=== PATIENT | male | born 1965 | race Caucasian/White ===

== ENCOUNTER 2017-05-07 07:00 | Emergency (ER) | payer SELFPAY ==
[2017-05-07] MEDS ORDERED: Ketorolac Tromethamine 30 MG/ML VIAL ONE (07:29)
--- NOTE | 2017-05-07 09:09 | RAD ---
RADIOGRAPH RIGHT SHOULDER 3 VIEWS: DTAE: 05/07/17. HISTORY: A 52-year-old male, acute right shoulder traumatic pain. COMPARISON: None. FINDINGS: Moderate degenerative changes at AC joint. Mild to moderate degenerative changes at inferior aspect of the glenohumeral joint. No acute fracture, subluxation, or dislocation. Low-grade chondroid lesi on in proximal humeral metaphysis. IMPRESSION: 1. No fracture. 2. Mild to moderate osteoarthrosis. 3. Low-grade chondroid lesion proximal humeral metaphysis. POS: [facility]
== END 2017-05-07 08:29 | disposition home or self-care (01) ==
LOC: NAV ERS 07:00
DX: M25.511 Pain in right shoulder (principal); W01.190A Fall on same level from slipping, tripping and stumbling with subsequent striking against furniture, initial encounter
CPT/HCPCS: 96372; J1885